=== PATIENT | male | born 1930 | race Caucasian/White ===

== ENCOUNTER 2017-02-06 07:44 | Outpatient (CLI) | payer MEDICARE ==
[2017-02-06 08:38] LABS: ALT (SGPT) 13 U/L (8-55); AST (SGOT) 15 U/L (5-34); Albumin 4.2 g/dL (3.4-4.8); Alkaline Phosphatase 64 U/L (40-150); Anion Gap 13 mmol/L (10-20); BUN (Urea Nitrogen) 23 mg/dL (8.4-25.7); Bilirubin, Total 1.4 mg/dL (0.2-1.2); Calc. Creatinine Clearance 0 mL/min (70-130); Calcium 9.3 mg/dL (7.8-10.44); Carbon Dioxide 25 mmol/L (23-31); Cardiac Risk 3.1 (Less than 4.5); Chloride 102 mmol/L (98-107); Cholesterol 145 mg/dL (< 200 Desired); Estimated GFR-MDRD 67; Globulin 2.4 g/dL (2.4-3.5); Glucose 96 mg/dL (83-110); HDL Cholesterol 47 mg/dL (>60 Neg Risk); LDL Cholesterol, Calculated 79 mg/dL; Potassium 4.1 mmol/L (3.5-5.1); Protein, Total 6.6 g/dL (5.8-8.1); Sodium 136 mmol/L (136-145); Triglycerides 95 mg/dL (Less than 150)
== END 2017-02-06 07:45 | disposition home or self-care (01) ==
LOC: MADLAB 07:44
PROVIDERS: ATTEND Internal Medicine Cardiovascular Disease
DX: I70.0 Atherosclerosis of aorta (principal); I48.0 Paroxysmal atrial fibrillation; I10 Essential (primary) hypertension
CPT/HCPCS: 36415; 80053; 80061

== ENCOUNTER 2019-10-09 11:12 | Emergency (ER) | payer MEDICARE ==
[2019-10-09] MEDS ORDERED: Sodium Chloride 0.9% 1,000 ML ONE (11:45)
[2019-10-09] MEDS ORDERED: Ciprofloxacin Lactate/D5W 400 mg/200 ml Premix ONE (11:45)
[2019-10-09 11:58] LABS: Bilirubin Moderate (Negative); Blood, Urine Large (Negative); Clarity Cloudy (Clear); Glucose, Urine (Dipstick) Negative (Negative); Leukocyte Moderate (Negative); Nitrite Positive (Negative); Protein, Urine (Dipstick) 100 mg/dL (Neg-Trace); Urobilinogen 0.2 mg/dL (Less than 2)
[2019-10-09 12:00] LABS: RBC/HPF Greater than 50 HPF (0-3); WBC/HPF 21-50 HPF (0-3)
[2019-10-09 12:01] LABS: Bacteria/HPF 2+ HPF (None Seen)
[2019-10-09 12:05] LABS: ALT (SGPT) 33 U/L (8-55); Albumin 3.5 g/dL (3.4-4.8); Alkaline Phosphatase 82 U/L (40-110); Anion Gap 20 mmol/L (10-20); BUN (Urea Nitrogen) 50 mg/dL (8.4-25.7); Bilirubin, Total 2.5 mg/dL (0.2-1.2); CK (CPK) 703 U/L (30-200); Calc. Creatinine Clearance 0 mL/min (70-130); Calcium 8.9 mg/dL (7.8-10.44); Carbon Dioxide 22 mmol/L (23-31); Chloride 93 mmol/L (98-107); Estimated GFR-MDRD 26; Globulin 2.9 g/dL (2.4-3.5); Glucose 77 mg/dL (83-110); Potassium 4.3 mmol/L (3.5-5.1); Protein, Total 6.4 g/dL (5.8-8.1); Sodium 131 mmol/L (136-145)
[2019-10-09 12:10] LABS: Hemoglobin 12.5 g/dL (14.0-18.0); Lymphocytes 56 % (21-51); MDiff Complete? YES; Mean Corpuscular HGB CONC 31.9 g/dL (32.0-36.0); Mean Corpuscular Hemoglobin 30.3 pg (27.0-31.0); Mean Platelet Volume 6.6 fL (7.4-10.4); Monocytes 4 % (0-10); Neutrophil 40 % (42-75); Platelet Count 212 thou/uL (130-400); Platelet Morphology Comment Appears Adequate; RBC Distribution Width 11.8 % (11.5-14.5); Red Blood Cell (RBC) Count 4.11 mill/uL (4.70-6.10); White Blood Cell (WBC) Count 33.3 thou/uL (4.8-10.8)
[2019-10-09 12:26] LABS: AST (SGOT) 34 U/L (5-34)
[2019-10-09] MEDS ORDERED: Sodium Chloride 0.9% 100 ML ONE (12:53)
[2019-10-09] MEDS ORDERED: Meropenem 1 GM VIAL ONE (12:53)
== END 2019-10-09 13:30 | disposition short-term general hospital (02) ==
LOC: MADERS 11:12
DX: T83.518A Infection and inflammatory reaction due to other urinary catheter, initial encounter (principal); N39.0 Urinary tract infection, site not specified; E86.0 Dehydration; E87.1 Hypo-osmolality and hyponatremia; I49.9 Cardiac arrhythmia, unspecified; I48.91 Unspecified atrial fibrillation; I10 Essential (primary) hypertension; Z79.899 Other long term (current) drug therapy
CPT/HCPCS: 80053; 81003; 81015; 82550; 85025; 87086; 96365; 96375; J0744; J2185; J3490; J7050

== ENCOUNTER 2019-10-15 14:10 | Inpatient (IN) | payer MEDICARE ==
[2019-10-15] MEDS ORDERED: Rivaroxaban 10 MG TAB PO SCH (18:45)
[2019-10-15] MEDS ORDERED: Bisacodyl 10 MG SUPP PR PRN (19:42)
[2019-10-15] MEDS: Zolpidem Tartrate 5 MG TAB PO SCH (21:12)
[2019-10-15] MEDS: Atorvastatin Calcium 10 MG TAB PO SCH (21:12)
[2019-10-15] MEDS: Trospium 20 MG TAB PO SCH (21:13)
[2019-10-15] MEDS: cefTRIAXone\\ROCEPHIN 1 GM VIAL IVPB SCH (21:19)
[2019-10-16] MEDS: Acetaminophen 325 MG TAB PO PRN (01:41)
[2019-10-16 02:23] LABS: Bilirubin Negative (Negative); Blood, Urine Moderate (Negative); Clarity Slightly Cloudy (Clear); Glucose, Urine (Dipstick) Negative (Negative); Leukocyte Large (Negative); Nitrite Negative (Negative); Protein, Urine (Dipstick) 30 mg/dL (Neg-Trace); Urobilinogen 0.2 mg/dL (Less than 2)
[2019-10-16 02:28] LABS: Bacteria/HPF 1+ HPF (None Seen); Squamous Epithelial None Seen HPF (0-3)
[2019-10-16 02:29] LABS: Yeast-Budding 3+ HPF (None Seen); Yeast-Hyphae 2+ HPF (None Seen)
[2019-10-16] MEDS: Levothyroxine Sodium 50 MCG TAB PO SCH (05:28)
[2019-10-16 05:57] LABS: ALT (SGPT) 26 U/L (8-55); AST (SGOT) 20 U/L (5-34); Alkaline Phosphatase 83 U/L (40-110); Anion Gap 11 mmol/L (10-20); BUN (Urea Nitrogen) 18 mg/dL (8.4-25.7); Bilirubin, Total 0.6 mg/dL (0.2-1.2); Calc. Creatinine Clearance 84 mL/min (70-130); Calcium 8.3 mg/dL (7.8-10.44); Carbon Dioxide 25 mmol/L (23-31); Chloride 103 mmol/L (98-107); Estimated GFR-MDRD Greater than 90; Globulin 2.2 g/dL (2.4-3.5); Glucose 86 mg/dL (83-110); Potassium 4.1 mmol/L (3.5-5.1); Protein, Total 5.2 g/dL (5.8-8.1); Sodium 135 mmol/L (136-145)
[2019-10-16 06:06] LABS: Blast 2 % (0-0); Differential Comment HX OF CLL; Eosinophils 3 % (0-10); Hemoglobin 11.7 g/dL (14.0-18.0); Lymphocytes 55 % (21-51); MDiff Complete? YES; Mean Corpuscular HGB CONC 33.1 g/dL (32.0-36.0); Mean Corpuscular Hemoglobin 30.8 pg (27.0-31.0); Mean Platelet Volume 6.2 fL (7.4-10.4); Monocytes 3 % (0-10); Neutrophil 20 % (42-75); Platelet Count 241 thou/uL (130-400); Platelet Morphology Comment Appears Adequate; Promyelocytes 1 % (0-0); RBC Distribution Width 12.1 % (11.5-14.5); RBC Morphology Normal; Reactive Lymphocytes 15 % (0-10); Red Blood Cell (RBC) Count 3.81 mill/uL (4.70-6.10); White Blood Cell (WBC) Count 25.3 thou/uL (4.8-10.8)
--- NOTE | 2019-10-16 07:30 | HP ---
Admitted to [facility] to Acute Care on 10/15/2019. CHIEF COMPLAINT: Weakness. HISTORY OF PRESENT ILLNESS: The patient is a very pleasant 89-year-old white male, who had been living at home independent. He was driving and independent of all his ADLs and instrumental ADLs. He has a history of hypertension, paroxysmal atrial fibrillation, benign prostatic hypertrophy, hypothyroidism, and CLL. The patient has been hospitalized and discharged on 09/23/2019, following a hospitalization for acute urinary retention secondary to bladder outlet obstruction from BPH. Johnson catheter was not able to be successfully passed after multiple attempts and the patient required urologist to take him to the emergency room for placement of the catheter. Also, he had paraphimosis that was reduced. He was on Xarelto for his atrial fibrillation, which was stopped and then he was discharged on 09/23 with an indwelling Johnson catheter. The patient was referred back to the hospital on 10/09/2019 by Home Health because the urine looked terrible. He was hospitalized from 10/09 to 10/15 and was found to have acute renal failure with a creatinine up to 2.35 and urinary tract infection. His creatinine dropped with hydration from 2.35 to 0.79 by 10/13. He was placed on IV Rocephin. The urine culture had no growth. Recommended that upon his discharge on 10/15 that he remain on the Rocephin for at least another 48 hours and then placed on Omnicef 300 mg b.i.d. for 10- day period. He has been restarted on the Xarelto. He has been left extremely weak and deconditioned and not able to return to independent living at this time. The patient was seen and soon after his admission, he was sitting up in a chair , had indwelling Johnson catheter draining yellowish urine that was a little cloudy. He had just eaten all his supper and was talkative and able to give me a good history of what had happened. PAST HISTORY: Discharged from the hospital on 09/23/2019, following urinary retention with multiple attempts to place a catheter resulting hematuria, required catheter to be placed in the operating room and also a paraphimosis to be reduced. He still has Johnson catheter in place. Hospitalized at [facility] from 10/09 to 10/15/2019 for acute renal failure that resolved urinary tract infection and chronic lymphocytic leukemia and his chronic atrial fibrillation. The patient has BPH, chronic atrial fibrillation, hypothyroidism, chronic lymphocytic leukemia. The patient has had cervical fusion, tonsillectomy, placement of a Johnson catheter in the OR on 09/19/2019, and reduction of paraphimosis. PRESENT MEDICATIONS: 1. Tolterodine tartrate 4 mg a day. 2. Xarelto 20 mg a day. 3. Hydrochlorothiazide 25 mg daily. 4. Levothyroxine 50 mcg daily. 5. Zolpidem 10 mg at bedtime. 6. Flomax 0.4 mg daily. 7. Zocor 20 mg daily. 8. Rocephin 1 g IV x48 hours followed by Omnicef 300 mg b.i.d. for 10 days. ALLERGIES: PENICILLIN, BUT ABLE TO TAKE CEPHALOSPORINS. REVIEW OF SYSTEMS: GENERAL: The patient has not had any recent fever. He does not think he has had any significant change in his weight. HEAD AND NECK: No complaints. PULMONARY: No shortness of breath. CARDIOVASCULAR: No chest pain. GI: The patient said he has been having a little trouble with constipation. : The patient has indwelling Johnson catheter. ADLS: Prior to the hospitalization on 09/19/2019, he has been living independent. He has been living alone, driving, and able to manage all his ADLs and instrumental ADLs. HABITS: The patient quit smoking in 1964. Alcohol, the patient has one beer at night and then takes a sleeping pill and goes to bed. SOCIAL HISTORY: The patient lives alone. CODE STATUS: Full code. PHYSICAL EXAMINATION: GENERAL: Shows a very pleasant 89-year-old white male, who is sitting up in chair. He is alert, talkative, and appears in no distress. VITAL SIGNS: Show a temperature of 97.6, pulse 65, respirations 16, O2 saturation 98% on room air, and blood pressure 137/68. HEENT: Head, normocephalic and atraumatic. Eyes, pupils are small, but equal. Ears, TMs are clear. Nose, normal. Mouth and throat, normal. NECK: Carotids are equal and strong. No bruits. Thyroid not enlarged. LUNGS: Clear. HEART: Regular rate. No murmurs. ABDOMEN: Soft, nontender. EXTREMITIES: The patient has a peripheral IV site in the right forearm. : The patient has indwelling Johnson catheter. The urine is yellowish, but just mildly cloudy. EXTREMITIES: Lower extremities, no edema. NEUROLOGIC: The patient is alert and oriented x3. Has generalized weakness that is nonfocal. IMPRESSION: 1. Weakness and deconditioning. a. Complicated by gait abnormalities, stabilized with walker. b. Following acute illness from hospitalization on 09/19/2019 and then again on 10/09/2019. c. Hospitalized at [facility] from 09/19 to 09/24/2019 for acute urinary retention with inability to pass Johnson catheter, resulting hematuria. Required operative placement of a Johnson catheter and reduction of a paraphimosis. d. Hospitalized at [facility] from 10/09 until 10/15/2019 for acute renal failure that resolved urinary tract infection and severe weakness. 2. Urinary tract infection. a. Culture had no growth. b. Treated with IV Rocephin, which is due to be completed on 10/17/2019 and then followed by a 10-day course of Omnicef. 3. BPH. 4. Acute urinary retention. a. Required placement of a Johnson catheter operatively on 09/23 after multiple unsuccessful attempts to pass catheter, resulting hematuria. b. Presently, urine is yellow and little cloudy. 5. Hypothyroidism. 6. Chronic atrial fibrillation. a. On anticoagulant with Xarelto. 7. Insomnia. 8. Constipation. 9. Chronic lymphocytic leukemia. LABORATORY DATA: White blood cell count on 10/14/2019, 33,900 with 23% neutrophils, 72% lymphocytes. PLAN: The patient has been admitted to the hospital, where he will complete the Rocephin 1 g IV after two doses, this should complete on 10/[address] on Omnicef. Physical Therapy and OT will work with the patient and try to improve his general strength and functional capability. We will place him on MiraLAX for constipation. He is on Xarelto, which was started for DVT prophylaxis. CODE STATUS: Full code. Job ID: [id number] [facility]
[2019-10-16] MEDS: Polyethylene Glycol 3350 17 GM Packet PO SCH (08:18)
[2019-10-16] MEDS: Tamsulosin HCl 0.4 MG CAP PO SCH (08:18)
[2019-10-16] MEDS: Trospium 20 MG TAB PO SCH ×2 (08:18→21:21)
[2019-10-16] MEDS: Hydrochlorothiazide 25 MG TAB PO SCH (08:18)
--- NOTE | 2019-10-16 09:33 | PRG ---
DATE OF SERVICE: 10/16/2019 SUBJECTIVE: The patient thinks he is doing fine. He had a good night, slept well. OBJECTIVE: GENERAL: The patient is sitting up in a chair. He is alert, appears comfortable, in no distress. VITAL SIGNS: Show a temp 96.3, pulse 76, respirations 20, O2 saturation 98% on room air, blood pressure 132/63. LUNGS: Clear. HEART: Regular rate. ABDOMEN: Johnson catheter, urine is clear and yellowish, has good output. LABORATORY DATA: Labs shows an H and H of 11.7 and 35.5, white cell count 25, 300 with 20% segs, 55% lymphocytes and 15% reactive lymphocytes, platelet count 241, 000, sodium 135, potassium 4.1, BUN 18, creatinine 0.77, GFR greater 90, glucose 86. ASSESSMENT: 1. Weakness and deconditioning. a. Complicated by gait abnormalities, stabilized with walker. b. Following acute illness from hospitalization on 09/19/2019 and then again on 10/09/2019. c. Hospitalized at [facility] from 09/19 to 09/24/2019 for acute urinary retention with inability to pass Johnson catheter, resulting hematuria. Required operative placement of a Johnson catheter and reduction of a paraphimosis. d. Hospitalized at [facility] from 10/09 until 10/15/2019 for acute renal failure that resolved urinary tract infection and severe weakness. e. Physical therapy and occupational therapy and has initiated care as 2019. 2. Urinary tract infection. a. Culture had no growth. b. Treated with IV Rocephin, which is due to be completed on 10/17/2019 and then followed by a 10-day course of Omnicef. 3. BPH. 4. Acute urinary retention. a. Required placement of a Johnson catheter operatively on 09/23 after multiple unsuccessful attempts to pass catheter, resulting hematuria. b. Presently, urine is yellow and little cloudy. 5. Hypothyroidism. 6. Chronic atrial fibrillation. a. On anticoagulant with Xarelto. 7. Insomnia. 8. Constipation. a. Controlled. 9. Chronic lymphocytic leukemia. a. White blood cell count 25,300 with 55% lymphocytes and 15% reactive lymphocytes. PLAN: Continue present care. Continue PT and OT. Job ID: [id number] [facility]
[2019-10-16] MEDS: Rivaroxaban 10 MG TAB PO SCH (17:08)
[2019-10-16] MEDS: Atorvastatin Calcium 10 MG TAB PO SCH (21:21)
[2019-10-16] MEDS: Clotrimazole 1% Cream 15 GM TUBE TOP SCH (21:22)
[2019-10-16] MEDS: cefTRIAXone\\ROCEPHIN 1 GM VIAL IVPB SCH (21:23)
[2019-10-16] MEDS: Zolpidem Tartrate 5 MG TAB PO SCH (23:05)
[2019-10-17] MEDS: Acetaminophen 325 MG TAB PO PRN ×2 (04:26→22:55)
[2019-10-17 05:33] LABS: Band 4 % (5-11); Blast 6 % (0-0); Eosinophils 2 % (0-10); Hemoglobin 12.2 g/dL (14.0-18.0); Lymphocytes 47 % (21-51); MDiff Complete? YES; Mean Corpuscular Hemoglobin 30.4 pg (27.0-31.0); Mean Corpuscular Volume 95.1 fL (78.0-98.0); Monocytes 4 % (0-10); Neutrophil 27 % (42-75); Platelet Count 232 thou/uL (130-400); RBC Distribution Width 12.2 % (11.5-14.5); Red Blood Cell (RBC) Count 4.02 mill/uL (4.70-6.10)
[2019-10-17] MEDS: Levothyroxine Sodium 50 MCG TAB PO SCH (06:01)
[2019-10-17] MEDS: Cefdinir 300 MG CAP PO SCH ×2 (08:28→21:50)
[2019-10-17] MEDS: Trospium 20 MG TAB PO SCH ×2 (08:28→21:50)
[2019-10-17] MEDS: Tamsulosin HCl 0.4 MG CAP PO SCH (08:28)
[2019-10-17] MEDS: Hydrochlorothiazide 25 MG TAB PO SCH (08:28)
[2019-10-17] MEDS: Polyethylene Glycol 3350 17 GM Packet PO SCH (08:28)
[2019-10-17] MEDS: Clotrimazole 1% Cream 15 GM TUBE TOP SCH ×2 (08:28→21:51)
[2019-10-17] MEDS: Rivaroxaban 10 MG TAB PO SCH (17:18)
[2019-10-17] MEDS: Atorvastatin Calcium 10 MG TAB PO SCH (21:50)
[2019-10-17] MEDS ORDERED: Mag-Al Plus 1200 MG/1200 MG/120 MG/30 ML UDCUP PO PRN (22:11)
[2019-10-17] MEDS: Zolpidem Tartrate 5 MG TAB PO SCH (23:17)
[2019-10-18] MEDS: Levothyroxine Sodium 50 MCG TAB PO SCH (06:03)
[2019-10-18] MEDS: Clotrimazole 1% Cream 15 GM TUBE TOP SCH ×2 (09:15→21:43)
[2019-10-18] MEDS: Cefdinir 300 MG CAP PO SCH ×2 (09:15→21:44)
[2019-10-18] MEDS: Polyethylene Glycol 3350 17 GM Packet PO SCH (09:16)
[2019-10-18] MEDS: Trospium 20 MG TAB PO SCH ×2 (09:16→21:44)
[2019-10-18] MEDS: Hydrochlorothiazide 25 MG TAB PO SCH (09:16)
[2019-10-18] MEDS: Tamsulosin HCl 0.4 MG CAP PO SCH (09:16)
[2019-10-18] MEDS: Rivaroxaban 10 MG TAB PO SCH (16:53)
[2019-10-18] MEDS: Acetaminophen 325 MG TAB PO PRN (21:44)
[2019-10-18] MEDS: Atorvastatin Calcium 10 MG TAB PO SCH (21:44)
[2019-10-18] MEDS: Zolpidem Tartrate 5 MG TAB PO SCH (22:35)
[2019-10-19] MEDS: Levothyroxine Sodium 50 MCG TAB PO SCH (05:56)
[2019-10-19] MEDS: Hydrochlorothiazide 25 MG TAB PO SCH (08:36)
[2019-10-19] MEDS: Cefdinir 300 MG CAP PO SCH ×2 (08:36→21:40)
[2019-10-19] MEDS: Trospium 20 MG TAB PO SCH ×2 (08:36→21:40)
[2019-10-19] MEDS: Tamsulosin HCl 0.4 MG CAP PO SCH (08:36)
[2019-10-19] MEDS: Clotrimazole 1% Cream 15 GM TUBE TOP SCH ×2 (08:36→22:56)
[2019-10-19] MEDS: Polyethylene Glycol 3350 17 GM Packet PO SCH (08:36)
[2019-10-19] MEDS: Rivaroxaban 10 MG TAB PO SCH (17:23)
[2019-10-19] MEDS: Atorvastatin Calcium 10 MG TAB PO SCH (21:40)
[2019-10-19] MEDS: Zolpidem Tartrate 5 MG TAB PO SCH (22:57)
[2019-10-20] MEDS: Levothyroxine Sodium 50 MCG TAB PO SCH (05:51)
[2019-10-20 06:16] LABS: Anion Gap 13 mmol/L (10-20); BUN (Urea Nitrogen) 20 mg/dL (8.4-25.7); Calc. Creatinine Clearance 81 mL/min (70-130); Calcium 8.7 mg/dL (7.8-10.44); Carbon Dioxide 25 mmol/L (23-31); Chloride 101 mmol/L (98-107); Estimated GFR-MDRD Greater than 90; Glucose 84 mg/dL (83-110); Sodium 135 mmol/L (136-145)
[2019-10-20 06:41] LABS: White Blood Cell (WBC) Count 26.5 thou/uL (4.8-10.8)
[2019-10-20 06:42] LABS: Eosinophils 1 % (0-10); Lymphocytes 57 % (21-51); MDiff Complete? YES; Manual Diff?? YES; Mean Corpuscular HGB CONC 31.8 g/dL (32.0-36.0); Mean Corpuscular Hemoglobin 30.4 pg (27.0-31.0); Mean Corpuscular Volume 95.6 fL (78.0-98.0); Mean Platelet Volume 6.3 fL (7.4-10.4); Monocytes 2 % (0-10); Neutrophil 35 % (42-75); Platelet Count 270 thou/uL (130-400); RBC Distribution Width 12.5 % (11.5-14.5); Reactive Lymphocytes 5 % (0-10); Red Blood Cell (RBC) Count 3.95 mill/uL (4.70-6.10)
[2019-10-20 06:43] LABS: Differential Comment HX OF CLL
[2019-10-20] MEDS: Polyethylene Glycol 3350 17 GM Packet PO SCH (08:39)
[2019-10-20] MEDS: Trospium 20 MG TAB PO SCH ×2 (08:39→22:04)
[2019-10-20] MEDS: Tamsulosin HCl 0.4 MG CAP PO SCH (08:39)
[2019-10-20] MEDS: Hydrochlorothiazide 25 MG TAB PO SCH (08:39)
[2019-10-20] MEDS: Cefdinir 300 MG CAP PO SCH ×2 (08:39→22:04)
[2019-10-20] MEDS: Clotrimazole 1% Cream 15 GM TUBE TOP SCH ×2 (08:42→22:04)
[2019-10-20] MEDS: Rivaroxaban 10 MG TAB PO SCH (18:39)
[2019-10-20] MEDS: Atorvastatin Calcium 10 MG TAB PO SCH (22:04)
[2019-10-20] MEDS: Zolpidem Tartrate 5 MG TAB PO SCH (22:37)
[2019-10-21] MEDS: Levothyroxine Sodium 50 MCG TAB PO SCH (06:35)
[2019-10-21] MEDS: Polyethylene Glycol 3350 17 GM Packet PO SCH (09:08)
[2019-10-21] MEDS: Cefdinir 300 MG CAP PO SCH ×2 (09:09→21:30)
[2019-10-21] MEDS: Hydrochlorothiazide 25 MG TAB PO SCH (09:09)
[2019-10-21] MEDS: Clotrimazole 1% Cream 15 GM TUBE TOP SCH ×2 (09:09→21:31)
[2019-10-21] MEDS: Trospium 20 MG TAB PO SCH ×2 (09:09→21:30)
[2019-10-21] MEDS: Tamsulosin HCl 0.4 MG CAP PO SCH (09:09)
[2019-10-21] MEDS: Fluconazole 100 MG TAB PO SCH (09:17)
--- NOTE | 2019-10-21 11:00 | PRG ---
DATE OF SERVICE: 10/21/2019 SUBJECTIVE: The patient says he is doing good this morning. He had given me a number for his daughter, Narcisa Jones, that he asked me to call her, that number is #[phone]. OBJECTIVE: GENERAL: The patient is sitting up, eating his breakfast, having just returned from PT. VITAL SIGNS: Show a temperature of 97.6, pulse 74, respirations 18, O2 saturation 98% on room air, and blood pressure 101/58. LUNGS: Clear. HEART: Regular rate. ASSESSMENT: 1. Weakness and deconditioning. a. Complicated by gait abnormalities, stabilized with walker. b. Following acute illness from hospitalization on 09/19/2019 and then again on 10/09/2019. c. Hospitalized at [facility] from 09/19 to 09/24/2019 for acute urinary retention with inability to pass Johnson catheter, resulting hematuria. Required operative placement of a Johnson catheter and reduction of a paraphimosis. d. Hospitalized at [facility] from 10/09 until 10/15/2019 for acute renal failure that resolved urinary tract infection and severe weakness. e. Continued improvement. Walking further with his walker and transferring with standby assistance as of 10/21. 2. Urinary tract infection. a. Culture had no growth. b. Treated with IV Rocephin, which is due to be completed on 10/17/2019 and then followed by a 10-day course of Omnicef. 3. BPH. 4. Acute urinary retention. a. Required placement of a Johnson catheter operatively on 09/23 after multiple unsuccessful attempts to pass catheter, resulting hematuria. b. Presently, urine is yellow and little cloudy. 5. Hypothyroidism. 6. Chronic atrial fibrillation. a. On anticoagulant with Xarelto. 7. Insomnia. 8. Constipation. a. Controlled. 9. Chronic lymphocytic leukemia. PLAN: Continue PT and OT. The patient's urine taken on 10/09, did have some yeast present. We will cover him with some Diflucan to ensure there is no overgrowth of yeast present. Job ID: [id number] [facility]
--- NOTE | 2019-10-21 11:02 | PRG ---
DATE OF SERVICE: 10/20/2019 SUBJECTIVE: The patient is in Physical therapy this morning. He says he is doing fine. Therapist said he is making good progress. He is walking a little further more securely and transferring easier. OBJECTIVE: GENERAL: The patient is sitting up in a chair. He is alert, talkative, appears in no distress. He has an indwelling Johnson catheter. Urine is clear. VITAL SIGNS: His temperature is 99.2, pulse 69, respirations 18, O2 saturations 93% on room air, blood pressure 106/57. LUNGS: Clear. HEART: Regular rate. LABORATORY DATA: Lab today shows hemoglobin and hematocrit of 12 and 37.7, white blood cell count 26,500 with 35% segs, 57% lymphocytes. There were no bands present nor premature cells nor any blast. Platelet count 270. Sodium 135, potassium 4 , BUN 20, creatinine 0.8, glucose 84. ASSESSMENT: 1. Weakness and deconditioning. a. Complicated by gait abnormalities, stabilized with walker. b. Following acute illness from hospitalization on 09/19/2019 and then again on 10/09/2019. c. Hospitalized at [facility] from 09/19 to 09/24/2019 for acute urinary retention with inability to pass Johnson catheter, resulting hematuria. Required operative placement of a Johnson catheter and reduction of a paraphimosis. d. Hospitalized at [facility] from 10/09 until 10/15/2019 for acute renal failure that resolved urinary tract infection and severe weakness. e. Continued improvement. Walking further with his walker. Transferring easier as of 10/20/2019. 2. Urinary tract infection. a. Culture had no growth. b. Treated with IV Rocephin, which is due to be completed on 10/17/2019 and then followed by a 10-day course of Omnicef. 3. BPH. 4. Acute urinary retention. a. Required placement of a Johnson catheter operatively on 09/23 after multiple unsuccessful attempts to pass catheter, resulting hematuria. b. Johnson catheter is functioning well. Urine is yellow and clear as of . 5. Hypothyroidism. 6. Chronic atrial fibrillation. a. On anticoagulant with Xarelto. 7. Insomnia. 8. Constipation. a. Controlled. 9. Chronic lymphocytic leukemia. a. Stable as of 10/20/2019. PLAN: Continue present care. Job ID: [id number] [facility]
--- NOTE | 2019-10-21 11:05 | PRG ---
DATE OF SERVICE: 10/17/2019 SUBJECTIVE: The patient said he is doing good. He has already been to physical therapy this morning. His appetite has been good. He is not having any trouble with the catheter. He did complete his ceftriaxone and has started the cefdinir. OBJECTIVE: GENERAL: The patient is sitting up in a chair. He is alert, appears comfortable and in no distress. VITAL SIGNS: Temp 97.7, pulse 72, respirations 16, O2 saturation 96% on room air, blood pressure 102/53. LUNGS: Clear. HEART: Regular rate. The patient has a Johnson catheter. The urine is clear in the bag. CBC today shows H and H of 12.2 and 38.2, white blood cell count 23,000 with 27% segs, 4% bands, 47% lymphocytes, and 6 blast cells. ASSESSMENT: 1. Weakness and deconditioning. a. Complicated by gait abnormalities, stabilized with walker. b. Following acute illness from hospitalization on 09/19/2019 and then again on 10/09/2019. c. Hospitalized at [facility] from 09/19 to 09/24/2019 for acute urinary retention with inability to pass Johnson catheter, resulting hematuria. Required operative placement of a Johnson catheter and reduction of a paraphimosis. d. Hospitalized at [facility] from 10/09 until 10/15/2019 for acute renal failure that resolved urinary tract infection and severe weakness. e. Improved. Walking further with his walker as of 10/17. 2. Urinary tract infection. a. Culture had no growth. b. Completed the additional two days of IV Rocephin and now has started the 10 day course of Omnicef as of 10/17/2019. 3. BPH. 4. Acute urinary retention. a. Required placement of a Johnson catheter operatively on 09/23 after multiple unsuccessful attempts to pass catheter, resulting hematuria. b. Good urine output with clear yellow urine as of 10/17. 5. Hypothyroidism. 6. Chronic atrial fibrillation. a. On anticoagulant with Xarelto. b. White blood cell count 23,000 with 27% segs, 47% lymphocytes, and 6% blast. 7. Insomnia. 8. Constipation. a. Controlled. 9. Chronic lymphocytic leukemia. PLAN: Continue present care. We will continue monitoring of the CBC, he has developed blasts cells that could indicate an acute leukemic transformation. We will recheck this Sunday10/20/2019. Job ID: [id number] [facility]
--- NOTE | 2019-10-21 11:07 | PRG ---
DATE OF SERVICE: 10/19/2019 SUBJECTIVE: The patient thinks he is doing good. He had no complaint. OBJECTIVE: GENERAL: The patient is sitting up in his chair, has indwelling Johnson catheter with clear yellowish urine output. He appears in no distress. VITAL SIGNS: His temperature is 97.2, pulse 69, respirations 16, O2 saturation 97% on room air, blood pressure 101/49. LUNGS: Clear. HEART: Regular rate. EXTREMITIES: No edema. ASSESSMENT: 1. Weakness and deconditioning. a. Complicated by gait abnormalities, stabilized with walker. b. Following acute illness from hospitalization on 09/19/2019 and then again on 10/09/2019. c. Hospitalized at [facility] from 09/19 to 09/24/2019 for acute urinary retention with inability to pass Johnson catheter, resulting hematuria. Required operative placement of a Johnson catheter and reduction of a paraphimosis. d. Hospitalized at [facility] from 10/09 until 10/15/2019 for acute renal failure that resolved urinary tract infection and severe weakness. e. Improving with a walker and transfers as of 10/19/2019. 2. Urinary tract infection. a. Culture had no growth. b. Treated with IV Rocephin, which is due to be completed on 10/17/2019 and then followed by a 10-day course of Omnicef. c. Improved. Remains asymptomatic and afebrile. 3. BPH. 4. Acute urinary retention. a. Required placement of a Johnson catheter operatively on 09/23 after multiple unsuccessful attempts to pass catheter, resulting hematuria. b. Urine is clear and yellowish. 5. Hypothyroidism. 6. Chronic atrial fibrillation. a. On anticoagulant with Xarelto. 7. Insomnia. 8. Constipation. a. Controlled. 9. Chronic lymphocytic leukemia. PLAN: Continue present care. Continue PT and OT. Job ID: [id number] [facility]
[2019-10-21] MEDS: Rivaroxaban 10 MG TAB PO SCH (17:42)
[2019-10-21] MEDS: Zolpidem Tartrate 5 MG TAB PO SCH (23:32)
[2019-10-22] MEDS: Levothyroxine Sodium 50 MCG TAB PO SCH (05:37)
[2019-10-22] MEDS: Polyethylene Glycol 3350 17 GM Packet PO SCH (08:39)
[2019-10-22] MEDS: Cefdinir 300 MG CAP PO SCH ×2 (08:40→21:52)
[2019-10-22] MEDS: Hydrochlorothiazide 25 MG TAB PO SCH (08:40)
[2019-10-22] MEDS: Trospium 20 MG TAB PO SCH ×2 (08:40→21:52)
[2019-10-22] MEDS: Tamsulosin HCl 0.4 MG CAP PO SCH (08:40)
[2019-10-22] MEDS: Fluconazole 100 MG TAB PO SCH (08:40)
[2019-10-22] MEDS: Clotrimazole 1% Cream 15 GM TUBE TOP SCH ×2 (08:40→21:55)
--- NOTE | 2019-10-22 12:13 | PRG ---
DATE OF SERVICE: 10/22/2019 SUBJECTIVE: The patient said he is doing all right this morning. He has worked with Physical Therapy. He is due to go see his urologist Dr. Buitrago this morning. OBJECTIVE: GENERAL: The patient is alert, appears comfortable, in no distress. VITAL SIGNS: Temperature 97.8, pulse 67, respirations 16, O2 saturation 97%, blood pressure 98/54. LUNGS: Clear. HEART: Regular rate. ASSESSMENT: 1. Weakness and deconditioning. a. Excellent progress with physical therapy as of 10/22. b. Following acute illness from hospitalization on 09/19/2019 and then again on 10/09/2019. c. Hospitalized at [facility] from 09/19 to 09/24/2019 for acute urinary retention with inability to pass Johnson catheter, resulting hematuria. Required operative placement of a Johnson catheter and reduction of a paraphimosis. d. Hospitalized at [facility] from 10/09 until 10/15/2019 for acute renal failure that resolved urinary tract infection and severe weakness. e. Physical therapy and occupational therapy and has initiated care as 10/16. 2. Urinary tract infection. a. Culture had no growth. b. Treated with IV Rocephin, which is due to be completed on 10/17/2019 and then followed by a 10-day course of Omnicef. 3. BPH. 4. Acute urinary retention. a. Required placement of a Johnson catheter operatively on 09/23 after multiple unsuccessful attempts to pass catheter, resulting hematuria. b. Presently, Johnson catheter is functioning well with good urinary output with clear urine. c. Due to see his urologist, Dr. Buitrago this morning. 5. Hypothyroidism. 6. Chronic atrial fibrillation. a. On anticoagulant with Xarelto. 7. Insomnia. 8. Constipation. a. Controlled. 9. Chronic lymphocytic leukemia. a. White blood cell count 25,300 with 55% lymphocytes and 15% reactive lymphocytes. PLAN: Continue PT and OT. The patient will be taken over to see Dr. Buitrago, his urologist this morning. I spoke with the patient's daughter yesterday to give her an update. I had recommended that once he does go home, he will need someone to stay with him to see if he is going to be able to manage things by himself. When visiting with the patient this morning, he said he wants to explore other option because he knows he is not going to have any one in the home to help him or prepare food for him. We will get Gastroenterologist to work with him and see what they can do. Job ID: [id number] [facility]
[2019-10-22] MEDS: Rivaroxaban 10 MG TAB PO SCH (17:30)
[2019-10-22] MEDS: Zolpidem Tartrate 5 MG TAB PO SCH (21:53)
[2019-10-22] MEDS: Acetaminophen 325 MG TAB PO PRN (23:16)
[2019-10-23] MEDS: Levothyroxine Sodium 50 MCG TAB PO SCH (05:36)
[2019-10-23] MEDS: Fluconazole 100 MG TAB PO SCH (09:06)
[2019-10-23] MEDS: Hydrochlorothiazide 25 MG TAB PO SCH (09:06)
[2019-10-23] MEDS: Clotrimazole 1% Cream 15 GM TUBE TOP SCH ×2 (09:06→21:50)
[2019-10-23] MEDS: Trospium 20 MG TAB PO SCH ×2 (09:06→21:50)
[2019-10-23] MEDS: Cefdinir 300 MG CAP PO SCH ×2 (09:06→21:50)
[2019-10-23] MEDS: Tamsulosin HCl 0.4 MG CAP PO SCH (09:06)
[2019-10-23] MEDS: Polyethylene Glycol 3350 17 GM Packet PO SCH (09:07)
[2019-10-23] MEDS: Acetaminophen 325 MG TAB PO PRN (09:17)
--- NOTE | 2019-10-23 09:55 | PRG ---
DATE OF SERVICE: 10/23/2019 SUBJECTIVE: The patient is sitting up in his chair. He went to see Dr. Buitrago, his urologist yesterday. The catheter was changed out and he is tentatively scheduled for cystoscopy and suprapubic catheter placement on 11/03/2019. The patient did not know what happened, he does not know if the catheter was removed, does not remember, the patient does have problems with short-term memory. OBJECTIVE: GENERAL: The patient is alert, appears comfortable, in no distress , VITAL SIGNS: Temperature 97.4, pulse 80, respirations 16, O2 saturation 97% on room air, and blood pressure 100/51. LUNGS: Clear. HEART: Regular rate. : The patient has a new catheter that was placed yesterday. The urine flow is good, clear, and yellowish. ASSESSMENT: 1. Weakness and deconditioning. a. Excellent progress with physical therapy as of 10/22. b. Following acute illness from hospitalization on 09/19/2019 and then again on 10/09/2019. c. Hospitalized at [facility] from 09/19 to 09/24/2019 for acute urinary retention with inability to pass Johnson catheter, resulting hematuria. Required operative placement of a Johnson catheter and reduction of a paraphimosis. d. Hospitalized at [facility] from 10/09 until 10/15/2019 for acute renal failure that resolved urinary tract infection and severe weakness. e. Excellent progress with physical therapy, ambulating further, and transferring better as of 10/23/2019. 2. Urinary tract infection. a. Culture had no growth. b. Treated with IV Rocephin, which is due to be completed on 10/17/2019 and then followed by a 10-day course of Omnicef. 3. BPH. 4. Acute urinary retention. a. Required placement of a Johnson catheter operatively on 09/23 after multiple unsuccessful attempts to pass catheter, resulting hematuria. b. Presently, Johnson catheter is functioning well with good urinary output with clear urine. c. Visit with Dr. Buitrago, urologist on 10/22. Catheter changed out. Scheduled for cystoscopy and suprapubic catheter placement on 11/03/2019. 5. Hypothyroidism. 6. Chronic atrial fibrillation. a. On anticoagulant with Xarelto. 7. Insomnia. 8. Constipation. a. Controlled. 9. Chronic lymphocytic leukemia. a. White blood cell count 25,300 with 55% lymphocytes and 15% reactive lymphocytes. 10. Memory impairment. PLAN: Continue present care. Continue PT and OT. The patient's daughter will be given Dr. Buitrago's number, so she can visit with him about the catheter and cystoscopy and suprapubic catheter placement. Social Service will be working with the patient and family for consideration of assisted living placement. This would be good for him because he does not have adequate help in the home. Job ID: [id number] [facility]
[2019-10-23] MEDS: Rivaroxaban 10 MG TAB PO SCH (17:22)
[2019-10-23] MEDS: Zolpidem Tartrate 5 MG TAB PO SCH (21:49)
[2019-10-24] MEDS: Acetaminophen 325 MG TAB PO PRN (03:17)
[2019-10-24] MEDS: Levothyroxine Sodium 50 MCG TAB PO SCH (05:57)
[2019-10-24] MEDS: Trospium 20 MG TAB PO SCH ×2 (08:25→21:31)
[2019-10-24] MEDS: Tamsulosin HCl 0.4 MG CAP PO SCH (08:25)
[2019-10-24] MEDS: Cefdinir 300 MG CAP PO SCH ×2 (08:25→21:31)
[2019-10-24] MEDS: Fluconazole 100 MG TAB PO SCH (08:26)
[2019-10-24] MEDS: Hydrochlorothiazide 25 MG TAB PO SCH (08:26)
[2019-10-24] MEDS: Polyethylene Glycol 3350 17 GM Packet PO SCH (08:26)
[2019-10-24] MEDS: Clotrimazole 1% Cream 15 GM TUBE TOP SCH ×2 (08:28→21:31)
--- NOTE | 2019-10-24 11:56 | PRG ---
DATE OF SERVICE: 10/24/2019 SUBJECTIVE: The patient said he is doing good. He says he does remember his visit to the urologist and said that he is scheduled to go back. At that time, they will do a cystoscopy and placement of a suprapubic catheter, which should be a lot more comfortable for him since he has not been able to void without the catheter and would be a poor candidate for self-catheterizations. OBJECTIVE: GENERAL: The patient is alert, appears very comfortable, in no distress. VITAL SIGNS: Temp 97.6, pulse 81, respirations 18, O2 sat 95% on room air, and blood pressure 143/64. LUNGS: Clear. HEART: Regular rate. : The patient has an indwelling Johnson catheter. The urine is yellow and clear. ASSESSMENT: 1. Weakness and deconditioning. a. Excellent progress. Walking further and transferring easier as of 10/24. b. Following acute illness from hospitalization on 09/19/2019 and then again on 10/09/2019. 2. Hospitalized at [facility] from 09/19 to 09/24/2019 for acute urinary retention with inability to pass Johnson catheter, resulting hematuria, required operative placement of Johnson catheter and reduction of a paraphimosis. 3. Hospitalized at [facility] from 10/09 until 10/15/2019 for acute renal failure, that resolved, and urinary tract infection with severe weakness. 4. Urinary tract infection. a. Culture had no growth. b. Treated initially with IV Rocephin and then followed by a 10-day course of oral Omnicef. 5. Benign prostatic hyperplasia. 6. Acute urinary retention. a. Required placement of a Johnson catheter operatively on 09/23 after multiple unsuccessful attempts and reduction of a paraphimosis. b. Visit with urologist, Dr. Buitrago on 10/22. Catheter changed out after inability to void. Scheduled for cystoscopy and suprapubic catheter placement on 11/03/2019. The patient would not be a good candidate for self catheterization. 7. Hypothyroidism. 8. Chronic atrial fibrillation. a. On Xarelto. b. Rate controlled. 9. Insomnia. 10. Constipation. a. Controlled. 11. Chronic lymphocytic leukemia. a. Stable. 12. Memory impairment. PLAN: Continue present care. Continue PT/OT. The patient is due to be rechecked by his urologist, Dr. Buitrago, on 11/03/2019. There, he will undergo cystoscopy and placement of a suprapubic catheter. Job ID: [id number] [facility]TDD
[2019-10-24] MEDS: Rivaroxaban 10 MG TAB PO SCH (17:32)
[2019-10-24] MEDS: Zolpidem Tartrate 5 MG TAB PO SCH (22:27)
[2019-10-25] MEDS: Acetaminophen 325 MG TAB PO PRN (00:15)
[2019-10-25] MEDS: Levothyroxine Sodium 50 MCG TAB PO SCH (06:02)
[2019-10-25] MEDS: Polyethylene Glycol 3350 17 GM Packet PO SCH (08:19)
[2019-10-25] MEDS: Trospium 20 MG TAB PO SCH ×2 (08:19→20:30)
[2019-10-25] MEDS: Cefdinir 300 MG CAP PO SCH (08:19)
[2019-10-25] MEDS: Clotrimazole 1% Cream 15 GM TUBE TOP SCH ×2 (08:19→20:31)
[2019-10-25] MEDS: Fluconazole 100 MG TAB PO SCH (08:19)
[2019-10-25] MEDS: Tamsulosin HCl 0.4 MG CAP PO SCH (08:19)
[2019-10-25] MEDS: Hydrochlorothiazide 25 MG TAB PO SCH (08:19)
[2019-10-25] MEDS: Rivaroxaban 10 MG TAB PO SCH (17:11)
[2019-10-25] MEDS: Zolpidem Tartrate 5 MG TAB PO SCH (22:09)
[2019-10-26] MEDS: Levothyroxine Sodium 50 MCG TAB PO SCH (05:34)
[2019-10-26] MEDS: Hydrochlorothiazide 25 MG TAB PO SCH (08:39)
[2019-10-26] MEDS: Polyethylene Glycol 3350 17 GM Packet PO SCH (08:39)
[2019-10-26] MEDS: Fluconazole 100 MG TAB PO SCH (08:39)
[2019-10-26] MEDS: Trospium 20 MG TAB PO SCH ×2 (08:39→20:29)
[2019-10-26] MEDS: Tamsulosin HCl 0.4 MG CAP PO SCH (08:39)
[2019-10-26] MEDS: Clotrimazole 1% Cream 15 GM TUBE TOP SCH ×2 (08:39→20:29)
[2019-10-26] MEDS: Acetaminophen 325 MG TAB PO PRN ×2 (16:27→22:21)
[2019-10-26] MEDS: Rivaroxaban 10 MG TAB PO SCH (17:09)
[2019-10-26] MEDS: Zolpidem Tartrate 5 MG TAB PO SCH (22:21)
[2019-10-27] MEDS: Levothyroxine Sodium 50 MCG TAB PO SCH (05:49)
[2019-10-27 06:01] LABS: Anion Gap 14 mmol/L (10-20); BUN (Urea Nitrogen) 17 mg/dL (8.4-25.7); Calc. Creatinine Clearance 71 mL/min (70-130); Calcium 8.7 mg/dL (7.8-10.44); Carbon Dioxide 25 mmol/L (23-31); Chloride 101 mmol/L (98-107); Estimated GFR-MDRD 83; Glucose 86 mg/dL (83-110); Sodium 136 mmol/L (136-145)
[2019-10-27 06:09] LABS: Hemoglobin 12.5 g/dL (14.0-18.0); Mean Corpuscular Hemoglobin 30.4 pg (27.0-31.0); Mean Platelet Volume 6.2 fL (7.4-10.4); Platelet Count 240 thou/uL (130-400); RBC Distribution Width 12.2 % (11.5-14.5); Red Blood Cell (RBC) Count 4.11 mill/uL (4.70-6.10); White Blood Cell (WBC) Count 25.6 thou/uL (4.8-10.8)
[2019-10-27 06:20] LABS: Anisocytosis SLIGHT = 6-15 cells (100X) (0-5/hpf); Eosinophils 1 % (0-10); Lymphocytes 68 % (21-51); MDiff Complete? YES; Monocytes 7 % (0-10); Neutrophil 24 % (42-75); Platelet Morphology Comment Appears Adequate
[2019-10-27] MEDS: Tamsulosin HCl 0.4 MG CAP PO SCH (08:19)
[2019-10-27] MEDS: Fluconazole 100 MG TAB PO SCH (08:19)
[2019-10-27] MEDS: Clotrimazole 1% Cream 15 GM TUBE TOP SCH ×2 (08:19→20:56)
[2019-10-27] MEDS: Polyethylene Glycol 3350 17 GM Packet PO SCH (08:19)
[2019-10-27] MEDS: Trospium 20 MG TAB PO SCH ×2 (08:19→20:57)
[2019-10-27] MEDS: Hydrochlorothiazide 25 MG TAB PO SCH (08:19)
--- NOTE | 2019-10-27 09:22 | PRG ---
DATE OF SERVICE: 10/27/2019 SUBJECTIVE: The patient said he is doing good. He is making further progress with physical therapy. He is scheduled to have a cystoscopy and suprapubic catheter placement on 11/03/2019. OBJECTIVE: GENERAL: The patient is alert, appears comfortable, in no distress. VITAL SIGNS: His temperature is 97.9, pulse 76, respirations 18, O2 saturation 96% on room air, and blood pressure 116/57. LUNGS: Clear. HEART: Regular rate. EXTREMITIES: No edema. : The patient has indwelling Johnson catheter. LABORATORY DATA: Shows an H and H of 12.5 and 39.1, white cell count 25,600, with 24% segs, 68% lymphocytes, platelet count of 240,000. Sodium 136, potassium 4, BUN 17, creatinine 0.87, GFR 83, and glucose 86. ASSESSMENT: 1. Weakness and deconditioning. a. Excellent progress as of 10/27/2019. b. Following acute illness from hospitalization on 09/19/2019 and then again on 10/09/2019. 2. Hospitalized at [facility] from 09/19/2019 to 09/24/2019 for acute urinary retention with inability to pass Johnson catheter resulting hematuria. Required operative placement of Johnson catheter and reduction of a paraphimosis. 3. Hospitalized at [facility] from 10/09/2019 until 10/15/2019 for acute renal failure that resolved and urinary tract infection with severe weakness. 4. Urinary tract infection. a. Culture had no growth. b. Treated initially with IV Rocephin and then completed a 10-day course of Omnicef. 5. Benign prostatic hyperplasia. 6. Acute urinary retention. a. Required placement of Johnson catheter operatively on 09/23/2019 after multiple unsuccessful attempts and for reduction of a paraphimosis. b. Visit with urologist, Dr. Buitrago on 10/22/2019. Catheter changed after inability to void. Scheduled for cystoscopy and suprapubic catheter placement on 11/03/2019. The patient would not be a good candidate for self catheterization. 7. Hypothyroidism. 8. Chronic atrial fibrillation. a. On Xarelto. b. Rate controlled. 9. Insomnia. 10. Constipation, controlled. 11. Chronic lymphocytic leukemia. a. Stable. 12. Memory impairment. PLAN: Continue present care. Social Service is working with the patient. Posthospitalization, he will need assistance for the care of the catheter and just general care. He does not feel like he will be able to manage catheter or manage his meals. Job ID: [id number] [facility]
[2019-10-27] MEDS: Rivaroxaban 10 MG TAB PO SCH (17:06)
[2019-10-27] MEDS: Acetaminophen 325 MG TAB PO PRN (20:57)
[2019-10-27] MEDS: Zolpidem Tartrate 5 MG TAB PO SCH (22:28)
[2019-10-28] MEDS: Levothyroxine Sodium 50 MCG TAB PO SCH (05:49)
[2019-10-28] MEDS: Trospium 20 MG TAB PO SCH ×2 (09:06→21:57)
[2019-10-28] MEDS: Finasteride 5 MG TAB PO SCH (09:06)
[2019-10-28] MEDS: Tamsulosin HCl 0.4 MG CAP PO SCH (09:06)
[2019-10-28] MEDS: Hydrochlorothiazide 25 MG TAB PO SCH (09:06)
[2019-10-28] MEDS: Fluconazole 100 MG TAB PO SCH (09:06)
[2019-10-28] MEDS: Clotrimazole 1% Cream 15 GM TUBE TOP SCH ×2 (09:07→21:57)
[2019-10-28] MEDS: Polyethylene Glycol 3350 17 GM Packet PO SCH (09:08)
[2019-10-28] MEDS: Rivaroxaban 10 MG TAB PO SCH (16:36)
[2019-10-28] MEDS: Zolpidem Tartrate 5 MG TAB PO SCH (21:57)
[2019-10-29] MEDS: Levothyroxine Sodium 50 MCG TAB PO SCH (05:52)
[2019-10-29] MEDS: Polyethylene Glycol 3350 17 GM Packet PO SCH (08:08)
[2019-10-29] MEDS: Finasteride 5 MG TAB PO SCH (08:08)
[2019-10-29] MEDS: Hydrochlorothiazide 25 MG TAB PO SCH (08:08)
[2019-10-29] MEDS: Tamsulosin HCl 0.4 MG CAP PO SCH (08:08)
[2019-10-29] MEDS: Clotrimazole 1% Cream 15 GM TUBE TOP SCH ×2 (08:08→21:59)
[2019-10-29] MEDS: Trospium 20 MG TAB PO SCH ×2 (08:08→21:59)
[2019-10-29] MEDS: Fluconazole 100 MG TAB PO SCH (08:08)
--- NOTE | 2019-10-29 09:05 | PRG ---
DATE OF SERVICE: 10/29/2019 SUBJECTIVE: The patient said he is doing okay. He has requested something for his bowels. He has the MiraLAX and a Dulcolax suppository if needed. OBJECTIVE: GENERAL: The patient is alert, appears in no distress. VITAL SIGNS: His temperature is 97.5, pulse 87, respirations 14, O2 saturation 96% on room air, blood pressure 115/57. LUNGS: Clear. HEART: Regular rate. : Indwelling Johnson catheter. Urine is clear. ASSESSMENT: 1. Weakness and deconditioning. a. Continued progress as of 10/29. b. Following acute illness from hospitalization on 09/19, again on 2019. 2. Hospitalized at [facility] from 09/19 until 09/24/2019 for acute urinary retention with inability to pass Johnson catheter resulting hematuria. Required operative placement of a Johnson catheter and reduction of a paraphimosis. 3. Hospitalized at [facility] from 10/09/2019 until 10/15/2019 for acute renal failure that had resolved and UTI with severe weakness. 4. Urinary tract infection. a. Culture had no growth. b. Treated with initially IV Rocephin and then completed a 10-day course of oral Omnicef. 5. Benign prostatic hypertrophy. 6. Acute urinary retention. a. Required placement of Johnson catheter operatively on 09/23/2019 after multiple unsuccessful attempts and reduction of a paraphimosis. b. Visit with urologist on 10/22/2019. Apparently felt a voiding trial, catheter changed. Scheduled to be rechecked by Dr. Buitrago on 11/04/[address] scan and then a followup visit with him. 7. Hypothyroidism. 8. Chronic atrial fib. a. Rate control. b. On Xarelto. 9. Insomnia. 10. Constipation. 11. Chronic lymphocytic leukemia. a. Stable. 12. Memory impairment. PLAN: Continue present care. Follow up with Dr. Buitrago with CT scan prior to visit on 11/04. Job ID: [id number] MTDD
[2019-10-29] MEDS: Rivaroxaban 10 MG TAB PO SCH (16:31)
[2019-10-29] MEDS: Zolpidem Tartrate 5 MG TAB PO SCH (21:56)
[2019-10-30] MEDS: Levothyroxine Sodium 50 MCG TAB PO SCH (06:06)
[2019-10-30] MEDS: Trospium 20 MG TAB PO SCH ×2 (08:47→20:45)
[2019-10-30] MEDS: Finasteride 5 MG TAB PO SCH (08:47)
[2019-10-30] MEDS: Clotrimazole 1% Cream 15 GM TUBE TOP SCH ×2 (08:47→20:45)
[2019-10-30] MEDS: Tamsulosin HCl 0.4 MG CAP PO SCH (08:47)
[2019-10-30] MEDS: Polyethylene Glycol 3350 17 GM Packet PO SCH (08:48)
--- NOTE | 2019-10-30 08:56 | PRG ---
DATE OF SERVICE: 10/30/2019 SUBJECTIVE: The patient has no complaint. Therapist said he is doing well. He is walking further and using his walker. He is able to transfer easier. His balance is pretty good, but if he raises up on his heel, he tends and want to tip backwards. OBJECTIVE: GENERAL: The patient is sitting up in a chair, working with therapy with therapist. He is alert. Appears very comfortable. VITAL SIGNS: His temperature is 98.4, pulse 80, respirations 18, O2 saturation 97% on room air, blood pressure was 88/54. LUNGS: Clear. HEART: Regular rate. GENITOURINARY: The patient has indwelling Johnson catheter with clear urine. ASSESSMENT: 1. Weakness and deconditioning. a. Continued improvement as of 10/30. b. Following acute illness from hospitalization, 09/19 and then again on 06/2020. 2. Hospitalized at [facility] from 09/19 to 09/24 for acute urinary retention with inability to pass Johnson catheter, required operative placement of a Johnson catheter and a reduction of a paraphimosis. 3. Hospitalized at [facility] from 10/09 to 10/15/2019 for acute renal failure that resolved and urinary tract infection, severe weakness. 4. Urinary tract infection. a. Culture had no growth. b. Initially treated with IV Rocephin and completed a 10 day course of oral Omnicef. 5. Benign prostatic hyperplasia. 6. Acute urinary retention. a. Required operative placement of Johnson catheter on 09/23/2019 after multiple unsuccessful attempts and reduction of paraphimosis. b. Visit with urologist on 10/22/2019. Apparently had a voiding trial, which he failed, scheduled to be rechecked by Dr. Buitrago on 11/04/[address] scan, and then followup visit. 7. Hypothyroidism. 8. Chronic atrial fibrillation. a. Rate control. b. On Xarelto. 9. Insomnia. 10. Constipation. 11. Chronic lymphocytic leukemia. a. Stable. 12. Memory impairment. PLAN: Continue present care. We will try stopping the hydrochlorothiazide since his pressure at times runs a little low. The patient will see his urologist on 11/04/[address] scan prior to visit. Job ID: [id number] [facility]
[2019-10-30] MEDS: Rivaroxaban 10 MG TAB PO SCH (17:39)
[2019-10-30] MEDS: Zolpidem Tartrate 5 MG TAB PO SCH (22:42)
[2019-10-31] MEDS: Acetaminophen 325 MG TAB PO PRN ×2 (01:45→23:00)
[2019-10-31] MEDS: Levothyroxine Sodium 50 MCG TAB PO SCH (05:27)
[2019-10-31] MEDS: Clotrimazole 1% Cream 15 GM TUBE TOP SCH ×2 (09:00→20:21)
[2019-10-31] MEDS: Trospium 20 MG TAB PO SCH ×2 (09:00→20:19)
[2019-10-31] MEDS: Finasteride 5 MG TAB PO SCH (09:00)
[2019-10-31] MEDS: Polyethylene Glycol 3350 17 GM Packet PO SCH (09:00)
[2019-10-31] MEDS: Tamsulosin HCl 0.4 MG CAP PO SCH (09:00)
[2019-10-31] MEDS: Rivaroxaban 10 MG TAB PO SCH (17:11)
[2019-10-31] MEDS: Zolpidem Tartrate 5 MG TAB PO SCH (22:59)
[2019-11-01] MEDS: Acetaminophen 325 MG TAB PO PRN ×3 (04:58→23:17)
[2019-11-01] MEDS: Levothyroxine Sodium 50 MCG TAB PO SCH (04:59)
[2019-11-01] MEDS: Tamsulosin HCl 0.4 MG CAP PO SCH (08:58)
[2019-11-01] MEDS: Finasteride 5 MG TAB PO SCH (08:58)
[2019-11-01] MEDS: Polyethylene Glycol 3350 17 GM Packet PO SCH (08:58)
[2019-11-01] MEDS: Clotrimazole 1% Cream 15 GM TUBE TOP SCH ×2 (08:58→21:18)
[2019-11-01 12:26] LABS: Bilirubin Moderate (Negative); Blood, Urine Large (Negative); Glucose, Urine (Dipstick) Negative (Negative); Leukocyte Large (Negative); Nitrite Positive (Negative); Protein, Urine (Dipstick) > or equal to 300 mg/dL (Neg-Trace)
[2019-11-01 12:27] LABS: Clarity Cloudy (Clear)
[2019-11-01 12:32] LABS: Bacteria/HPF 1+ HPF (None Seen); RBC/HPF Greater than 50 HPF (0-3); Squamous Epithelial 0-3 HPF (0-3); WBC/HPF Greater Than 50 HPF (0-3)
[2019-11-01] MEDS: Zolpidem Tartrate 5 MG TAB PO SCH (23:16)
[2019-11-02] MEDS: Levothyroxine Sodium 50 MCG TAB PO SCH (05:33)
[2019-11-02] MEDS: Clotrimazole 1% Cream 15 GM TUBE TOP SCH ×2 (08:13→21:20)
[2019-11-02] MEDS: Polyethylene Glycol 3350 17 GM Packet PO SCH (08:13)
[2019-11-02] MEDS: Finasteride 5 MG TAB PO SCH (08:13)
[2019-11-02] MEDS: Tamsulosin HCl 0.4 MG CAP PO SCH (08:13)
[2019-11-02] MEDS: Zolpidem Tartrate 5 MG TAB PO SCH (22:37)
[2019-11-02] MEDS: Acetaminophen 325 MG TAB PO PRN (22:38)
[2019-11-03] MEDS: Levothyroxine Sodium 50 MCG TAB PO SCH (05:40)
[2019-11-03] MEDS: Finasteride 5 MG TAB PO SCH (08:47)
[2019-11-03] MEDS: Polyethylene Glycol 3350 17 GM Packet PO SCH (08:47)
[2019-11-03] MEDS: Clotrimazole 1% Cream 15 GM TUBE TOP SCH ×2 (08:47→20:40)
[2019-11-03] MEDS: Tamsulosin HCl 0.4 MG CAP PO SCH (08:47)
--- NOTE | 2019-11-03 12:18 | PRG ---
DATE OF SERVICE: 11/03/2019 SUBJECTIVE: The patient said he is doing okay. Tomorrow, he is scheduled to have a CT scan of the abdomen and pelvis and then see his orthopedic surgeon, Dr. Buitrago. He is doing well with his therapy. OBJECTIVE: GENERAL: The patient is sitting up in a chair, alert, appears comfortable, and in no distress. VITAL SIGNS: His temperature is 97.8, pulse 74, respirations 18, O2 saturations 97% on room air, blood pressure 130/64. LUNGS: Clear. HEART: Regular rate. : Johnson catheter has yellow drainage. ASSESSMENT: 1. Weakness and deconditioning. a. Continued improvement as of 11/03. b. Following acute illness from hospitalization on 09/19 and again on 2019. 2. Hospitalized at [facility] from 09/19 to 09/24 for acute urinary retention with inability to pass Johnson catheter. Required operative placement of a Johnson catheter and reduction of a paraphimosis. 3. Hospitalized at [facility] from 10/09/2019 to 10/15/2019 for acute renal failure that resolved and urinary tract infection and severe weakness. 4. Urinary tract infection: a. Culture had no growth. b. Initially treated with IV Rocephin. Completed a 10-day course of oral Omnicef. 5. BPH. 6. Acute urinary retention: a. Required operative placement of Johnson catheter on 09/23 after multiple unsuccessful attempts and reduction of paraphimosis. b. Visited with urologist on 10/22/2019. Apparently, he had a voiding trial , which he failed, scheduled for recheck with Dr. Buitrago on 11/04/[address] scan. 7. Hypothyroidism. 8. Chronic atrial fibrillation: a. Rate controlled. b. On Xarelto. 9. Insomnia. 10. Constipation. 11. Chronic lymphocytic leukemia. 12. Memory impairment. PLAN: Continue PT. Continue present medicines. Due to see Dr. Buitrago tomorrow with CT scan. Job ID: [id number] MTDD
[2019-11-03] MEDS: Zolpidem Tartrate 5 MG TAB PO SCH (23:49)
[2019-11-04] MEDS: Acetaminophen 325 MG TAB PO PRN ×2 (03:50→23:19)
[2019-11-04] MEDS: Levothyroxine Sodium 50 MCG TAB PO SCH (05:31)
[2019-11-04] MEDS: Polyethylene Glycol 3350 17 GM Packet PO SCH (08:28)
[2019-11-04] MEDS: Tamsulosin HCl 0.4 MG CAP PO SCH (08:28)
[2019-11-04] MEDS: Clotrimazole 1% Cream 15 GM TUBE TOP SCH ×2 (08:28→22:19)
[2019-11-04] MEDS: Finasteride 5 MG TAB PO SCH (08:28)
[2019-11-04] MEDS: Zolpidem Tartrate 5 MG TAB PO SCH (23:18)
[2019-11-05] MEDS: Levothyroxine Sodium 50 MCG TAB PO SCH (05:36)
[2019-11-05] MEDS: Finasteride 5 MG TAB PO SCH (09:33)
[2019-11-05] MEDS: Cipro 250 MG TAB PO SCH ×2 (09:33→20:20)
[2019-11-05] MEDS: Clotrimazole 1% Cream 15 GM TUBE TOP SCH ×2 (09:33→20:23)
[2019-11-05] MEDS: Tamsulosin HCl 0.4 MG CAP PO SCH (09:33)
[2019-11-05] MEDS: Acetaminophen 325 MG TAB PO PRN ×3 (09:34→21:00)
[2019-11-05] MEDS: Polyethylene Glycol 3350 17 GM Packet PO SCH (09:34)
--- NOTE | 2019-11-05 11:16 | PRG ---
DATE OF SERVICE: 11/05/2019 SUBJECTIVE: The patient said he is doing all right this morning. The patient yesterday underwent an suprapubic catheter placement by his urologist Dr. Buitrago without problems. This morning, he said he is not having any discomfort. He has already been to therapy. OBJECTIVE: GENERAL: The patient is alert, appears comfortable, in no distress. VITAL SIGNS: Temp 97.1 pulse 63, respirations 16, O2 saturation 95, blood pressure 130/67. LUNGS: Clear. HEART: Regular rate. ABDOMEN: The patient has a little dry blood around the suprapubic insertion site. EXTREMITIES: No edema. The patient's urine culture taken from 11/01 is growing Pseudomonas sensitive to Cipro, colony count greater than 100,000. ASSESSMENT: 1. Weakness and deconditioning: a. Continued improvement as of 11/05. b. Hospitalized at [facility] from 09/19 to 09/24 for acute urinary retention with inability to pass Johnson catheter. Required operative placement of Johnson catheter and reduction of paraphimosis. c. Hospitalized at [facility] from 10/09 to 10/15/2019 for acute renal failure that resolved and urinary tract infection with severe weakness. d. Urinary tract infection: I. Culture initially had no growth. II. Initially treated with IV Rocephin and completed a 10-day course of Omnicef. III. Evidence of urinary tract infection taken from culture collected on 11/01 with Pseudomonas aeruginosa sensitive to Cipro. IV. Benign prostatic hypertrophy. V. Acute urinary retention. . It required operative placement of Johnson catheter on 09/23 after multiple unsuccessful attempts. VII. Visit with urologist on 10/22/2019. Voiding trial unsuccessful. Catheter replaced. VIII. Status post suprapubic catheter placement by urologist, Dr. Buitrago on 11/04. IX. Hypothyroidism. X. Chronic atrial fibrillation. XI. Rate control on Xarelto. XII. Insomnia. XIII. Constipation. XIV. Chronic lymphocytic leukemia. XV. Memory impairment. PLAN: Continue PT and OT. Start the patient on Cipro 500 mg b.i.d. for 10 days for the UTI with Pseudomonas. We will keep the suprapubic catheter clean and dressed daily. Job ID: [id number] [facility]
[2019-11-05] MEDS: Zolpidem Tartrate 5 MG TAB PO SCH (23:24)
[2019-11-06 05:52] LABS: Anion Gap 14 mmol/L (10-20); BUN (Urea Nitrogen) 18 mg/dL (8.4-25.7); Calc. Creatinine Clearance 74 mL/min (70-130); Calcium 8.6 mg/dL (7.8-10.44); Carbon Dioxide 23 mmol/L (23-31); Chloride 105 mmol/L (98-107); Estimated GFR-MDRD 87; Glucose 81 mg/dL (83-110); Potassium 3.8 mmol/L (3.5-5.1); Sodium 138 mmol/L (136-145)
[2019-11-06] MEDS: Levothyroxine Sodium 50 MCG TAB PO SCH (05:58)
[2019-11-06 06:01] LABS: Band 2 % (5-11); Blast 2 % (0-0); Eosinophils 1 % (0-10); Hemoglobin 11.8 g/dL (14.0-18.0); Lymphocytes 79 % (21-51); MDiff Complete? YES; Mean Corpuscular HGB CONC 32.4 g/dL (32.0-36.0); Mean Corpuscular Hemoglobin 30.4 pg (27.0-31.0); Mean Corpuscular Volume 93.7 fL (78.0-98.0); Mean Platelet Volume 6.6 fL (7.4-10.4); Metamyelocyte 1 % (0-0); Monocytes 3 % (0-10); Myelocyte 4 % (0-0); Neutrophil 3 % (42-75); Platelet Count 121 thou/uL (130-400); Platelet Morphology Comment Appears Decreased; RBC Distribution Width 12.3 % (11.5-14.5); RBC Morphology Normal; Reactive Lymphocytes 5 % (0-10); Red Blood Cell (RBC) Count 3.89 mill/uL (4.70-6.10); Small Platelets SLIGHT
[2019-11-06] MEDS: Cipro 250 MG TAB PO SCH ×2 (08:25→21:03)
[2019-11-06] MEDS: Finasteride 5 MG TAB PO SCH (08:25)
[2019-11-06] MEDS: Clotrimazole 1% Cream 15 GM TUBE TOP SCH ×2 (08:25→21:03)
[2019-11-06] MEDS: Polyethylene Glycol 3350 17 GM Packet PO SCH (08:26)
[2019-11-06] MEDS: Tamsulosin HCl 0.4 MG CAP PO SCH (08:26)
--- NOTE | 2019-11-06 09:15 | PRG ---
DATE OF SERVICE: 11/06/2019 SUBJECTIVE: The patient thinks he is doing well. He continues to do well with his therapy. His urine output has been clear from the suprapubic catheter. OBJECTIVE: GENERAL: The patient is sitting up in a chair. He is alert, appears comfortable, in no distress. VITAL SIGNS: Temp 97.1, pulse 72, respirations 16, O2 saturation 95% on room air, blood pressure 128/60. LUNGS: Clear. HEART: Regular rate. EXTREMITIES: No edema. LABORATORY DATA: CBC showed an H and H of 11.8 and 36.5, white cell count 10, 000 with 79% lymphocytes, 3% neutrophils, 2% bands, 2% blasts, platelet count 121, 000. ASSESSMENT: 1. Weakness and deconditioning. a. Improved as of 11/06. 2. Hospitalized at [facility] from 09/19 to 09/24 for acute urinary retention with inability to pass Johnson catheter. Required operative placement of Johnson catheter and reduction of a paraphimosis. 3. Hospitalized at [facility] from 10/09 to 10/15 for acute renal failure that resolved and urinary tract infection and severe weakness. 4. Urinary tract infection. a. Urine culture collected on 11/01, growing Pseudomonas aeruginosa sensitive to Cipro. b. Started on Cipro on 11/05/2019. 5. Acute urinary retention. a. Required operative placement of Johnson catheter on 09/23 after multiple unsuccessful attempts. b. Visit with urologist on 10/22, Dr. Buitrago. Voiding trial unsuccessful. Catheter replaced. c. Status post suprapubic catheter placement by Dr. Buitrago on 11/04/2019. The catheter working well. 6. Hypothyroidism. 7. Chronic atrial fibrillation. a. Rate controlled and on Xarelto. 8. Insomnia, controlled. 9. Constipation. 10. Chronic lymphocytic leukemia. 11. Memory impairment. PLAN: Continue PT, OT. Continue catheter care, and the stoma over the bladder clean and dressed. Job ID: [id number] [facility]TDD
[2019-11-06 13:35] VITALS: BMI 26.2
[2019-11-06] MEDS: Acetaminophen 325 MG TAB PO PRN (21:03)
[2019-11-06] MEDS: Zolpidem Tartrate 5 MG TAB PO SCH (23:30)
[2019-11-07] MEDS: Levothyroxine Sodium 50 MCG TAB PO SCH (05:43)
[2019-11-07] MEDS: Finasteride 5 MG TAB PO SCH (08:29)
[2019-11-07] MEDS: Tamsulosin HCl 0.4 MG CAP PO SCH (08:29)
[2019-11-07] MEDS: Cipro 250 MG TAB PO SCH ×2 (08:29→20:18)
[2019-11-07] MEDS: Polyethylene Glycol 3350 17 GM Packet PO SCH (08:29)
[2019-11-07] MEDS: Clotrimazole 1% Cream 15 GM TUBE TOP SCH ×2 (08:32→20:22)
[2019-11-07] MEDS: Zolpidem Tartrate 5 MG TAB PO SCH (22:05)
[2019-11-08] MEDS: Levothyroxine Sodium 50 MCG TAB PO SCH (05:30)
[2019-11-08] MEDS: Tamsulosin HCl 0.4 MG CAP PO SCH (08:35)
[2019-11-08] MEDS: Finasteride 5 MG TAB PO SCH (08:35)
[2019-11-08] MEDS: Polyethylene Glycol 3350 17 GM Packet PO SCH (08:36)
[2019-11-08] MEDS: Cipro 250 MG TAB PO SCH ×2 (08:36→20:31)
[2019-11-08] MEDS: Clotrimazole 1% Cream 15 GM TUBE TOP SCH ×2 (08:36→20:32)
[2019-11-08] MEDS: Zolpidem Tartrate 5 MG TAB PO SCH (23:08)
[2019-11-09] MEDS: Acetaminophen 325 MG TAB PO PRN (03:24)
[2019-11-09] MEDS: Levothyroxine Sodium 50 MCG TAB PO SCH (05:34)
[2019-11-09] MEDS: Tamsulosin HCl 0.4 MG CAP PO SCH (08:59)
[2019-11-09] MEDS: Finasteride 5 MG TAB PO SCH (08:59)
[2019-11-09] MEDS: Polyethylene Glycol 3350 17 GM Packet PO SCH (09:00)
[2019-11-09] MEDS: Cipro 250 MG TAB PO SCH ×2 (09:00→19:47)
[2019-11-09] MEDS: Clotrimazole 1% Cream 15 GM TUBE TOP SCH ×2 (09:03→19:47)
[2019-11-10] MEDS: Zolpidem Tartrate 5 MG TAB PO SCH ×2 (00:15→22:40)
[2019-11-10] MEDS: Levothyroxine Sodium 50 MCG TAB PO SCH (05:06)
--- NOTE | 2019-11-10 07:38 | PRG ---
DATE OF SERVICE: 11/07/2019 SUBJECTIVE: The patient said he is doing well today. He is doing better with his therapy. He has been visited by neighbor, Pietro López. Ms. López said that he is one of his close neighbors that help look in on him and help with meals. He has another neighbor that also looks in and assist him. He thinks he can do fine back home with the help of his neighbors and with home health when he goes home, but the patient does not want to go to a [place] health care facility. OBJECTIVE: GENERAL: The patient is sitting up in a chair, talkative, visiting with his neighbor. He appears in no distress. VITAL SIGNS: His temperature is 96.4, pulse is 72, respirations 20, O2 saturation 96% on room air, and blood pressure 124/60. LUNGS: Clear. HEART: Regular rate. GENITOURINARY: Johnson catheter is draining just clear urine. ASSESSMENT: 1. Weakness and deconditioning. a. Improving as of 11/07. 2. Hospitalized at [facility] from 09/19 to 09/24 for acute urinary retention with inability to pass Johnson catheter. Required operative placement of Johnson catheter and reduction of a paraphimosis. 3. Hospitalized at [facility] from 10/09 to 10/15 for acute renal failure that resolved and urinary tract infection and severe weakness. 4. Urinary tract infection. a. Urine culture collected on 11/01, growing Pseudomonas aeruginosa sensitive to the Cipro. b. Cipro started on 11/05. 5. Acute urinary retention. a. Required operative placement of a Johnson catheter on 09/23 after multiple unsuccessful attempts to past Johnson. b. Visit with urologist on 10/22, Dr. Buitrago. Unable to void. Catheter replaced. c. Status post suprapubic catheter placement by Dr. Buitrago on 11/04/2019. Catheter working well. 6. Hypothyroidism. 7. Chronic atrial fibrillation. a. Rate controlled and on Xarelto. 8. Insomnia. 9. Constipation, controlled. 10. Chronic lymphocytic leukemia. a. Stable. 11. Memory impairment. a. Stable. PLAN: Continue present care. Visit with the patient's neighbor. The patient was ready to go back to his home, does not want to go to [place]. Feels like he has adequate support at home and we will arrange for physical therapy also to look in on him. Job ID: [id number] [facility]
[2019-11-10] MEDS: Cipro 250 MG TAB PO SCH ×2 (08:31→20:17)
[2019-11-10] MEDS: Finasteride 5 MG TAB PO SCH (08:31)
[2019-11-10] MEDS: Polyethylene Glycol 3350 17 GM Packet PO SCH (08:31)
[2019-11-10] MEDS: Tamsulosin HCl 0.4 MG CAP PO SCH (08:31)
[2019-11-10] MEDS: Clotrimazole 1% Cream 15 GM TUBE TOP SCH ×2 (08:31→20:18)
[2019-11-10] MEDS: Acetaminophen 325 MG TAB PO PRN (20:17)
[2019-11-11] MEDS: Acetaminophen 325 MG TAB PO PRN ×2 (04:28→20:54)
[2019-11-11] MEDS: Levothyroxine Sodium 50 MCG TAB PO SCH (06:10)
[2019-11-11] MEDS: Tamsulosin HCl 0.4 MG CAP PO SCH (08:31)
[2019-11-11] MEDS: Polyethylene Glycol 3350 17 GM Packet PO SCH (08:31)
[2019-11-11] MEDS: Clotrimazole 1% Cream 15 GM TUBE TOP SCH ×2 (08:31→20:54)
[2019-11-11] MEDS: Cipro 250 MG TAB PO SCH ×2 (08:31→20:54)
[2019-11-11] MEDS: Finasteride 5 MG TAB PO SCH (08:31)
--- NOTE | 2019-11-11 09:28 | PRG ---
DATE OF SERVICE: 11/11/2019 SUBJECTIVE: The patient thinks he is doing good. He has no complaint. Nurses were concerned that he may be depressed with his flat affect and decreased interactiveness. Visited with the patient about the plan on discharge and he is happy with whenever. OBJECTIVE: GENERAL: The patient is sitting up in a chair. He is alert, appears in no distress. VITAL SIGNS: Show a temperature of 96.5, pulse 78, respirations 16, O2 saturation 95% on room air, blood pressure 115/55. LUNGS: Clear. HEART: Regular rate. GENITOURINARY: Urine is clear in his suprapubic catheter. ASSESSMENT: 1. Weakness and deconditioning. a. Improving as of 11/11. 2. Hospitalized at [facility] from 09/19 to 09/24 for acute urinary retention with inability to pass Johnson catheter. Required operative placement of Ojhnson catheter and reduction of a paraphimosis. 3. Hospitalized at [facility] from 10/09 to 10/15 for acute renal failure that resolved and urinary tract infection and severe weakness. 4. Urinary tract infection. a. Urine culture collected on 11/01, growing Pseudomonas aeruginosa is sensitive to the Cipro. b. Started on Cipro on 11/05. 5. Acute urinary retention. a. Required operative placement of a Johnson catheter on 09/23 after multiple unsuccessful attempts to pass Johnson. b. Visited with his urologist, Dr. Buitrago on 10/22. Unable to void, catheter replaced. c. Status post suprapubic catheter placement by Dr. Buitrago on 11/04. Catheter working well with clear urine. 6. Hypothyroidism. 7. Chronic atrial fibrillation. a. Rate controlled on Xarelto. 8. Insomnia. 9. Constipation. 10. Chronic lymphocytic leukemia, stable. 11. Memory impairment. 12. Possible depression. PLAN: Continue present care. Continue PT. We will try the patient on antidepressant to see if this helps any. Will utilize sertraline 25 mg daily. Job ID: [id number] [facility]
[2019-11-11] MEDS: Rivaroxaban 10 MG TAB PO SCH (16:43)
[2019-11-11] MEDS: Zolpidem Tartrate 5 MG TAB PO SCH (21:54)
[2019-11-12] MEDS: Levothyroxine Sodium 50 MCG TAB PO SCH (05:48)
[2019-11-12] MEDS: Polyethylene Glycol 3350 17 GM Packet PO SCH (07:56)
[2019-11-12] MEDS: Tamsulosin HCl 0.4 MG CAP PO SCH (07:56)
[2019-11-12] MEDS: Cipro 250 MG TAB PO SCH ×2 (07:57→21:17)
[2019-11-12] MEDS: Finasteride 5 MG TAB PO SCH (07:57)
[2019-11-12] MEDS: Clotrimazole 1% Cream 15 GM TUBE TOP SCH ×2 (07:57→21:18)
[2019-11-12] MEDS: Rivaroxaban 10 MG TAB PO SCH (18:00)
[2019-11-12] MEDS: Acetaminophen 325 MG TAB PO PRN (21:17)
[2019-11-12] MEDS: Zolpidem Tartrate 5 MG TAB PO SCH (23:06)
[2019-11-13] MEDS: Levothyroxine Sodium 50 MCG TAB PO SCH (05:47)
[2019-11-13] MEDS: Clotrimazole 1% Cream 15 GM TUBE TOP SCH ×2 (08:59→22:41)
[2019-11-13] MEDS: Tamsulosin HCl 0.4 MG CAP PO SCH (08:59)
[2019-11-13] MEDS: Polyethylene Glycol 3350 17 GM Packet PO SCH (08:59)
[2019-11-13] MEDS: Finasteride 5 MG TAB PO SCH (08:59)
[2019-11-13] MEDS: Cipro 250 MG TAB PO SCH (08:59)
[2019-11-13] MEDS: Acetaminophen 325 MG TAB PO PRN (09:02)
[2019-11-13] MEDS: Rivaroxaban 10 MG TAB PO SCH (17:12)
[2019-11-13] MEDS: Zolpidem Tartrate 5 MG TAB PO SCH (22:41)
[2019-11-14 05:49] LABS: Hemoglobin 11.8 g/dL (14.0-18.0); Platelet Count 235 thou/uL (130-400)
[2019-11-14] MEDS: Levothyroxine Sodium 50 MCG TAB PO SCH (06:00)
[2019-11-14] MEDS: Tamsulosin HCl 0.4 MG CAP PO SCH (08:48)
[2019-11-14] MEDS: Clotrimazole 1% Cream 15 GM TUBE TOP SCH ×2 (08:48→21:56)
[2019-11-14] MEDS: Polyethylene Glycol 3350 17 GM Packet PO SCH (08:48)
[2019-11-14] MEDS: Finasteride 5 MG TAB PO SCH (08:48)
[2019-11-14] MEDS: Rivaroxaban 10 MG TAB PO SCH (17:25)
[2019-11-14] MEDS: Zolpidem Tartrate 5 MG TAB PO SCH (23:10)
[2019-11-15] MEDS: Levothyroxine Sodium 50 MCG TAB PO SCH (05:34)
[2019-11-15] MEDS: Finasteride 5 MG TAB PO SCH (08:34)
[2019-11-15] MEDS: Clotrimazole 1% Cream 15 GM TUBE TOP SCH ×2 (08:34→21:22)
[2019-11-15] MEDS: Polyethylene Glycol 3350 17 GM Packet PO SCH (08:34)
[2019-11-15] MEDS: Tamsulosin HCl 0.4 MG CAP PO SCH (08:35)
[2019-11-15] MEDS: Rivaroxaban 10 MG TAB PO SCH (17:00)
[2019-11-15] MEDS: Zolpidem Tartrate 5 MG TAB PO SCH (22:39)
[2019-11-16] MEDS: Levothyroxine Sodium 50 MCG TAB PO SCH (05:37)
[2019-11-16] MEDS: Acetaminophen 325 MG TAB PO PRN (08:09)
[2019-11-16] MEDS: Finasteride 5 MG TAB PO SCH (08:09)
[2019-11-16] MEDS: Tamsulosin HCl 0.4 MG CAP PO SCH (08:09)
[2019-11-16] MEDS: Polyethylene Glycol 3350 17 GM Packet PO SCH (08:10)
[2019-11-16] MEDS: Clotrimazole 1% Cream 15 GM TUBE TOP SCH ×2 (08:11→21:22)
[2019-11-16] MEDS: Rivaroxaban 10 MG TAB PO SCH (16:54)
[2019-11-16] MEDS: Zolpidem Tartrate 5 MG TAB PO SCH (22:35)
[2019-11-17] MEDS: Acetaminophen 325 MG TAB PO PRN (03:13)
[2019-11-17] MEDS: Levothyroxine Sodium 50 MCG TAB PO SCH (05:36)
--- NOTE | 2019-11-17 07:02 | PRG ---
DATE OF SERVICE: 11/16/2019 SUBJECTIVE: The patient said he is doing good. He had no complaint. OBJECTIVE: GENERAL: The patient is sitting up in his bedside chair. He has his indwelling suprapubic catheter in place. The urine is very clear. He appears very comfortable. VITAL SIGNS: Show a temperature 97.8, pulse 67, respirations 16, O2 saturation 94% on room air, blood pressure 141/65. LUNGS: Clear. HEART: Regular rate. EXTREMITIES: No edema. ASSESSMENT: 1. Weakness and deconditioning. a. Continued improvement as of 11/16. Transferring better and walking further with his rolling walker. 2. Hospitalized at [facility] from 09/19 to 09/24, acute urinary retention with inability to pass Johnson catheter. Required operative placement of Johnson catheter and reduction of a paraphimosis. 3. Hospitalized at [facility] from 10/09 to 10/15 for acute renal failure that resolved and a urinary tract infection and severe weakness. 4. Urinary tract infection. a. Urine culture collected on 11/01 growing Pseudomonas aeruginosa sensitive to the Cipro. b. Completed a 10-day course of Cipro on 11/15. 5. Acute urinary retention. a. Required operative placement of Johnson catheter on 09/23 after multiple unsuccessful attempts to pass Johnson. b. Visit with Dr. Buitrago, his urologist on 10/22. Unable to void. Catheter replaced. c. Status post suprapubic catheter placement by Dr. Buitrago on 11/04. Catheter working well with clear urine as of 11/16. 6. Hypothyroidism. 7. Chronic atrial fibrillation. a. Rate controlled and on Xarelto. 8. Insomnia. 9. Constipation. 10. Chronic lymphocytic leukemia. 11. Memory impairment. 12. Depression. PLAN: Continue present care. Continue PT and OT. The patient is scheduled to be discharged tomorrow 11/17 to [facility] in [place]. Job ID: [id number] [facility]
[2019-11-17] MEDS: Finasteride 5 MG TAB PO SCH (08:33)
[2019-11-17] MEDS: Tamsulosin HCl 0.4 MG CAP PO SCH (08:33)
[2019-11-17] MEDS: Polyethylene Glycol 3350 17 GM Packet PO SCH (08:33)
[2019-11-17] MEDS: Clotrimazole 1% Cream 15 GM TUBE TOP SCH (08:34)
[2019-11-17 08:43] VITALS: BP 145/67; TEMP 95.6
--- NOTE | 2019-11-18 11:22 | DIS ---
DATE OF ADMISSION: 10/15/2019 DATE OF DISCHARGE: 11/17/2019 FINAL DIAGNOSES: 1. Weakness and deconditioning. a. Continued improvement as of 11/17, transferring independent with standby assistance, walking up to 350 feet several times a day with a rolling walker. 2. Hospitalized at [facility] from 09/19 to 09/24 for acute urinary retention with inability to pass Johnson catheter. Required operative replacement of Johnson catheter and reduction of a paraphimosis. 3. Hospitalized at [facility] from 10/09 to 10/15/2019 for acute renal failure that resolved and urinary tract infection and severe weakness for urinary tract infection. a. Urine culture collected on 11/01, grew Pseudomonas aeruginosa sensitive to Cipro. b. Completed a 10-day course of Cipro on 11/15. 4. Acute urinary retention. a. Required operative placement of Johnson catheter on 09/23 after multiple failed attempts to pass Johnson. b. Visit with Dr. Buitrago, urologist from 10/22, unable to avoid, catheter replaced. c. Status post suprapubic catheter placement by Dr. Buitrago on 11/04. Catheter working well. Urine clear as of 11/17. 5. Hypothyroidism. 6. Chronic atrial fibrillation. a. Rate controlled. b. On Xarelto. 7. Insomnia, controlled. 8. Constipation, controlled. 9. Chronic lymphocytic leukemia. a. Stable. 10. Memory impairment. 11. Depression. SUMMARY: The patient is an 89-year-old white male, who has a history of BPH; chronic atrial fibrillation, for which he is on Xarelto; hypothyroidism; chronic lymphocytic leukemia; and insomnia. He was living at home and getting around with the use of a walker. He had neighbors, who assisted him with some of his instrumental ADLs. The patient had been hospitalized at [facility] from 09/19 to 09/24, for acute urinary retention with inability to pass a Johnson catheter. He required an operative placement of a Johnson and reduction of a paraphimosis. He again was hospitalized from 10/09 to 10/15/2019, for acute renal failure, urinary tract infection, and severe weakness. The infection resolved and the acute renal failure resolved. He was left extremely weak and consequently was transferred to [facility] for rehabilitation. During his stay, he developed urinary tract infection from Pseudomonas aeruginosa sensitive to Cipro and completed a 10-day course of Cipro on 11/15. He followed up with his urologist, Dr. Buitrago , for the acute retention in the Johnson catheter. He failed effort to remove catheter and catheter was replaced. The patient underwent a suprapubic catheter placement on 11/04/2019. He has done well with the catheter. The site is healing and the urine has remained clear. He will follow up with Dr. Buitrago for the suprapubic catheter. He had no trouble from the atrial fibrillation. His rate has remained clear and he has remained on Xarelto. His insomnia has been controlled with his Ambien. His constipation has been controlled. His chronic lymphocytic leukemia has been stable. His last H and H on 11/14 was 11.8 and 37.1. On 11/06, his white blood cell count was 10,000 with 79% lymphocytes, 3% neutrophils, and 2% bands. He also had 2% blast cells. His platelet count was 121 and H and H of 11.8 and 36.5. His last basic metabolic panel on 11/06 showed a sodium of 138, potassium of 3.8, BUN 18, creatinine 0.8, glucose was 81. The patient did very well with his physical therapy and by the time of his discharge, he was getting up unassisted. He was ambulating using his walker, walking up to 250 to 350 feet several times a day. The patient does have some memory impairment and does not have any immediate family. He has been dependent upon his neighbors. He and his daughter have explored his living arrangement and they had made arrangements for him to enter the [facility] in [place]. The patient was discharged there on 11/17/2019. He will follow up with his primary care physician there in [place], Dr. Kirby and also with his urologist, Dr. Buitrago. DISPOSITION: Diet; regular diet, no added salt. Activities; ambulate with the use of a walker. Suprapubic catheter. Arrangements will be made for Home Health to see the patient and also for continuation of PT. MEDICATIONS: 1. Acetaminophen 325 mg two every 6 hours as needed. 2. Maalox plus 30 mL every 4 hours p.r.n. indigestion. 3. Dulcolax suppository 10 mg 1 per rectum daily p.r.n. 4. Finasteride 5 mg daily. 5. Levothyroxine 50 mcg daily. 6. MiraLAX 17 g in 8 ounces of water daily. 7. Xarelto 20 mg daily. 8. Sertraline 25 mg daily. 9. Tamsulosin 0.4 mg daily. 10. Zolpidem 10 mg at bedtime. FOLLOWUP: The patient will need to see his primary care physician, Dr. Kirby within the next two weeks. He should also follow up with his urologist, Dr. Buitrago. CODE STATUS: Full code. Job ID: [id number] MTDD
--- NOTE | 2019-11-19 22:03 | PQF ---
Dada Hooks GROVER MD [id number] CLINICAL DOCUMENTATION CLARIFICATION FORM: POST DISCHARGE Addendum to original discharge summary date: ____ Late entry note date: __ DATE:11/19/2019 ATTN: RAUL UGARTE MD Please exercise your independent, professional judgment in responding to the clarification form. Clinical indicators are provided on the bottom of this form for your review Please check appropriate box(s): kindly clarify the diagnosis occasioning on admission [ ] UTI with yeast due to shane [ ] UTI with yeast not due to shane [ ] UTI without yeast due to shane [ ] UTI without yeast not due to shane [ ] Other diagnosis [ ] Unable to determine For continuity of documentation, please document condition throughout progress notes and discharge summary. Thank You. CLINICAL INDICATORS - SIGNS / SYMPTOMS / LABS Urinary tract infection -Documented in H&P on 10/15 by Raul Ugarte MD Hospitalized at [facility] from 09/19 to 09/24 for acute urinary retention with inability to pass foly catheter. Required operative replacement of foly catheter and reduction of a paraphimosis-Discharge summary on 11/17 by Raul Ugarte MD Severe Weakness for urinary tract infection, Urine culture collected on 11/01 , grew pseudomonas aeruginosa sensitive to cipro-Discharge summary on 11/17 by Raul Ugarte MD Vist with Dr Buitrago, Urologist from 10/22, Unable to avioid catheter replaced- Discharge summary on 11/17 by Raul Ugarte MD RISK FACTORS Urinary tract infection -Documented in H&P on 10/15 by Raul Ugarte MD Pt has indwelling Shane catheter-Documented in H&P on 10/15 by Raul Ugarte MD TREATMENT: Treated with IV Rocephin, Which is due to be completed on 10/17/2019 and then followed bt a 10 day course of Omnicef-Documented in H&P on 10/15 by Raul Ugarte MD Completed a 10 day course of cipro on 11/15-Discharge summary on 11/17 by Raul Ugarte MD Suprapupic catheter placement by Dr Buitrago on 11/04-Discharge summary on 11/17 by Raul Ugarte MD [employer] (This form is maintained as a part of the permanent medical record) 2014 [employer]. All Rights Reserved [email or web address] [phone] MTDD
== END 2019-11-17 11:00 | disposition home or self-care (01) | DRG 690 ==
LOC: MADMS 17:05
PROVIDERS: ADMIT Family Medicine; ATTEND Family Medicine
DX: N39.0 Urinary tract infection, site not specified (principal); C91.10 Chronic lymphocytic leukemia of B-cell type not having achieved remission; E03.9 Hypothyroidism, unspecified; G47.00 Insomnia, unspecified; K59.00 Constipation, unspecified; F32.9 Major depressive disorder, single episode, unspecified; N40.1 Benign prostatic hyperplasia with lower urinary tract symptoms; R33.8 Other retention of urine; N47.2 Paraphimosis; B96.5 Pseudomonas (aeruginosa) (mallei) (pseudomallei) as the cause of diseases classified elsewhere; I48.0 Paroxysmal atrial fibrillation; I10 Essential (primary) hypertension; Z88.0 Allergy status to penicillin; R53.1 Weakness; R26.9 Unspecified abnormalities of gait and mobility
CPT/HCPCS: 36415; 80048; 80053; 81001; 85014; 85018; 85025; 85049; 87077; 87086; 87186; J0696